=== PATIENT | male | born 1995 | race Caucasian/White ===

== ENCOUNTER 2016-09-08 22:12 | Emergency (ER) | payer OTHER ==
--- NOTE | ~2016-09-08 | CT4 ---
[facility] A Service of [facility] RADIOLOGY TEXT RESULTS PATIENT: GAURAV SANTILLAN LOCATION: SED : [birth year] UNIT #: [id number] AGE: [address]: Buddy Stafford SEX: M ORDER DR: [id number] [place] [id number] E MR#: [id number] Acc #: [id number] NAME: GAURAV SANTILLAN : 1995 SEX: M STUDY DATE/TIME: 09/08/2016 21:49 UNIT: SED ROOM: STUDY DESCRIPTION: CT Abd and Pelv Wo Cont Attending Physician: Buddy Stafford P.A.-C. Ordering Physician: Buddy Stafford P.A.-C. Primary Care Physician: Primary Care Physician No MEDICAL IMAGING REPORT This report is preliminary unless electronic signature is present. EXAM CT abdomen and pelvis, 09/08/2016 at 21:49 INDICATIONS Right flank pain that started this morning. Possible kidney stone. Pain rates 8 out of 10. TECHNIQUE Axial images were obtained through the abdomen and pelvis without contrast. Multiplanar reformats were obtained. No comparison. This CT exam was performed with one or more of the following radiation dose reduction techniques: automatic exposure control, adjustment of mA and/or kV according to patient size, and iterative reconstruction. FINDINGS ABDOMEN: The lung bases are clear. The gallbladder is normal. No renal or ureteral stones are seen. There is no hydronephrosis. The unenhanced solid organs are normal. The unopacified GI tract is normal. No free fluid is seen. PELVIS: The appendix is normal. The remainder of the unopacified GI tract is normal as well. There are no lower ureteral stones. The bladder is normal. There is no free fluid. IMPRESSION Normal noncontrast CT abdomen and pelvis. No renal or ureteral stones. No hydronephrosis. Normal GI tract, including the appendix. [facility] A Service of [facility] RADIOLOGY TEXT RESULTS PATIENT: GAURAV SANTILLAN LOCATION: SED : [birth year] UNIT #: [id number] AGE: [address]: Buddy Stafford PAC SEX: M ORDER DR: Dictated by... Boo Don Jr., M.D. THIS IS AN ELECTRONICALLY VERIFIED REPORT Boo Don Jr., M.D. at 09/09/2016 6:04 AM ERIKA/clifford TD: 09/09/2016 00:51 JOB #: [id number] MEDICAL IMAGING REPORT Page 1 of 1
[2016-09-08 21:56] LABS: URINE SOURCE CLEAN CATCH
[2016-09-08 22:03] LABS: MICRO INDICATED? NO; URINE APPEARANCE CLEAR; URINE BILIRUBIN NEG (NEG); URINE BLOOD NEG (NEG); URINE COLOR YELLOW; URINE GLUCOSE NORM (NEG); URINE KETONE NEG (NEG); URINE LEUKOCYTE ESTERASE NEG (NEG); URINE NITRATE NEG (NEG); URINE PH 5.5 (5-8); URINE PROTEIN NEG (NEG); URINE SPECIFIC GRAVITY 1.025 (1.003-1.035); URINE UROBILINOGEN 0.2 MG/DL (NEG)
[~2016-09-08 22:12] MED LIST: ZYRTEC10 M2 PO
[2016-09-08 22:18] LABS: BASOPHIL# 0.1 X10e3 (0-0.3); BASOPHIL% 1.1 % (0-2.5); EOSINOPHIL# 0.1 X10e3 (0-0.7); EOSINOPHIL% 1.1 % (0.0-7.0); HEMATOCRIT 44.6 % (38.0-50.0); HEMOGLOBIN 14.8 gm/dL (13.0-16.0); LYMPHOCYTE# 3.3 X10e3 (1.0-3.5); LYMPHOCYTE% 27.8 % (17.0-45.0); MEAN CELL VOLUME 81.2 FL (83-96); MEAN CORPUSCULAR HGB CONC 33.2 g/dL (30-36); MEAN PLATELET VOLUME 9.7 FL (6.5-11.5); MONOCYTE# 0.9 X10e3 (0-1.0); MONOCYTE% 7.8 % (3.0-12.0); NEUTROPHIL# 7.3 X10e3 (1.5-7.1); NEUTROPHIL% 62.2 % (40-75); PLATELET COUNT 250 X10e3 (140-420); RED BLOOD COUNT 5.49 X10e (3.90-5.60); RED CELL DISTRIBUTION WIDTH 13.1 % (11.0-15.5); WHITE BLOOD COUNT 11.7 X10e3 (4.0-10.5)
[2016-09-08 22:21] LABS: DIFF IND NO
[2016-09-08 22:34] LABS: ALBUMIN SERUM 4.4 g/dL (3.5-5.0); BILIRUBIN, DIRECT 0.1 mg/dL (0.0-0.2); BILIRUBIN,INDIRECT 0.3 mg/dL (0.0-0.9); BILIRUBIN,TOTAL 0.4 mg/dL (0.2-2.0); BUN/CREATININE RATIO 17.27; CREATININE SERUM 1.1 mg/dL (0.6-1.4); GLOM FILT RATE Estimated 95.5 mL/min (>60); POTASSIUM 3.7 mmol/L (3.5-5.1); PROTEIN TOTAL SERUM 7.5 g/dL (6.0-8.3)
== END 2016-09-08 23:39 | disposition home or self-care (01) ==
LOC: SED 22:12
PROVIDERS: Physician Assistant
DX: R10.9 Unspecified abdominal pain (principal); R11.2 Nausea with vomiting, unspecified; Z79.899 Other long term (current) drug therapy
CPT/HCPCS: 36415; 74176; 80048; 80076; 81003; 83690; 85025; 96361; 96374; 99284; J2405